=== PATIENT | male | born 1995 | race Hispanic/Latino ===

== ENCOUNTER → 2024-06-16 | Outpatient (CLI) | payer MEDICAID ==
--- NOTE | 2024-06-17 00:39 | HMCIMG ---
NM GASTRIC EMPTYING STUDY REASON: VOMITING UNSP.. COMPARISON: None TECHNIQUE: Nuclear gastric emptying study was performed with 1.5 mCi of technetium sulfur colloid with scrambled eggs through oral route. FINDINGS: T half of gastric emptying is 74 minutes. IMPRESSION: Normal gastric emptying with T half is 74 minutes.
== END | disposition home or self-care (01) ==
LOC: RAH 11:02
PROVIDERS: ATTEND Internal Medicine Gastroenterology
DX: R11.10 Vomiting, unspecified (principal)
CPT/HCPCS: 78264; A9541